=== PATIENT | female | born 1990 | race Two or more races ===

== ENCOUNTER 2023-12-25 23:24 | Emergency (ER) | payer OTHER ==
--- OUTSIDE RECORDS SUMMARY | 2023-12-25 23:27 | XMS REPORT | Continuity of Care Document ---
Author Name Unknown Address [address] [facility] [address] [place] [address] [facility] Address [address] [facility] 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 Name Role Phone No , Giuseppe Primary Care Physician Unavailab Radha Ferguson Attending Clinician Unavailable MICHAEL ROSE Attending Clinician Unavailable MICHAEL ROSE Attending Clinician Unavailable Chasity Jackson MD Attending Clinician DANIEL GARCIA Attending Clinician Unavailable Radha Ornelas Admitting Clinician Unavailable Payers Payer Name Policy Type Policy Number Effective Date Expirati on Date Source [employer] CHOICE POS II [id number] 2022 00:00:00 Allergies, Adverse Reactions, Alerts Allergy Name Allergy Type Status Severity Reaction(s) Onset Date Inactive Date Treating Clinician Comments Source No Known Allergie s DA Active U 2023-03 008 00:00: 00 [facility] Social History Social Habit Start Date Stop Date Quantity Comments Source History of tobacco use Snuff User [facility] Sexual orientation [facility] Cigarettes smoked current (pack per day) - Reported 2023-02-22 00:00:00 2023-02-22 00:00:00 [facility] Cigarette pack-years 2023-02-22 00:00:00 2023-02-22 00:00:00 [facility] Tobacco use and exposure 2023-02-22 00:00:00 2023-02-22 00:00:00 User of smokeless tobacco [facility] History of Social function 2023-02-22 00:00:00 2023-02-22 00:00:00 [facility] Alcoholic beverage intake 2023-02-22 00:00:00 2023-02-22 00:00:00 Lifetime non-drinker (finding) [facility] Alcohol intake 2022-12-08 00:00:00 2022-12-08 00:00:00 Lifetime non-drinker (finding) [facility] Sex assigned at 1990 00:00:00 1990 00:00:00 [facility] Smoking Status Start Date Stop Date Source Smokes tobacco daily 2023-02-22 00:00:00 [facility] Medications Ordered Medication Name Filled Medication Name Start Date Stop Date Current Medication? Ordering Clinician Indication Dosage Frequency Signature (SIG) Comments Components Source cyclobenzap rine (Flexeril) 5 MG tablet 2022-03 00:00: 00 03-05 05:59 :00 No [id number] 5mg Q.[id number] 3D Take 1 tablet (5 mg total) by mouth in the morning and 1 tablet (5 mg total) at noon and 1 tablet (5 mg total) in the evening. Do all this for 10 days. [facility] docusate sodium (Colace) 100 MG capsule 2022-03 2-06 00:00: 00 02-22 00:00 :00 No [id number] 100mg Q.5D Take 1 capsule (100 mg total) by mouth 2 (two) times a day if needed for constipati on for up to 15 days. [facility] levothyroxi ne (Synthroid, Levoxyl) 25 MCG tablet 2022-03 0-14 00:00: 00 Yes 25ug QD Take 25 mcg by mouth 1 (one) time each day. [facility] nystatin-tr iamcinolone (Mycolog II) ointment 12-08 00:00: 00 12-23 04:59 :00 No [id number] Q.5D Apply topically 2 (two) times a day for 14 days. [facility] Immunizations Ordered Immunization Name Filled Immunization Name Date Status Comments Patricia rce HPV 9-Valent Unknown [facility]pleted [facility] 9-[facility] Unknown Completed [facility] HPV 9-Valent Unknown Completed [facility] HPV 9-[facility] Unknown Completed [facility] Vital Signs Vital Name Observation Time Observation Value Comments S ource Systolic blood pressure 2023-02-22 19:47:00 125 mm[Hg] [facility] Diastolic blood pressure 2023-02-22 19:47:00 79 mm[Hg] [facility] Body height 2023-02-22 19:47:00 [facility] weight 2023-02-22 19:47:00 81.647 [facility] BMI 2023-02-22 19:47:00 28[facility]19 [facility] Systolic blood pressure 2023-01-26 16:58:00 110 mm[Hg] [facility] Diastolic blood pressure 2023-01-26 16:58:00 75 mm[Hg] [facility] Heart rate 2023-01-26 16:58:00 65 /min [facility] Body weight 2023-01-26 16:58:00 78.926 [facility] BMI 2023-01-26 16:58:00 28.30 [facility] Systolic blood pressure 2022-12-29 17:08:00 114 mm[Hg] [facility] Diastolic blood pressure 2022-12-29 17:08:00 80 mm[Hg] [facility] Heart rate 2022-12-29 17:08:00 77 /min [facility] Body weight 2022-12-29 17:08:00 78.926 [facility] BMI 2022-12-29 17:08:00 28.30 [facility]m2 [facility] Systolic blood pressure 2022-12-08 16:31:00 111 mm[Hg] [facility] Diastolic blood pressure 2022-12-08 16:31:00 76 mm[Hg] [facility] Heart rate 2022-12-08 16:31:00 75 /min [facility] Body height 2022-12-08 16:31:00 167 cm [facility] Body weight 2022-12-08 16:31:00 78.472 [facility] BMI 2022-12-08 16:31:00 28.14 kg/m2 [facility] Procedures Procedure Date / Time Performed Performing Clinicia n Source POCT , URINE 2023-01-26 18:53:49 Regan Rose [facility] TISSUE PATHOLOGY 2023-01-26 18:53:00 [facility] DC COLPOSC,CERVIX W/ADJ VAG, W/BX & CURRETAG 2023-01-26 16:45:00 [facility] POCT URINALYSIS DIPSTICK 2022-12-08 17:14:18 [facility] Encounters Start Date/Time End Date/Time Encounter Type Admission Type Attending Clinicians Care Facility Care Department Encounter ID Source 2023-12-18 17:22:00 2023-12-18 19:42:00 Emergency EM Radha Ornelas [facility] KAYE [id number] [facility] 2023-07-10 16:15:00 2023-07-10 16:15:00 Outpatient MICHAEL ROSE [facility] [id number] [facility] 2023-02-22 13:30:00 2023-02-22 14:27:46 Office Visit Michael Rose [facility] [address] [facility] [id number] [facility] 2023-02-14 07:02:00 2023-02-14 12:30:00 Outpatient MICHAEL ROSE [facility] [id number] [address] [place] [address] 2023-02-14 08:30:00 2023-02-14 08:30:00 Outpatient MICHAEL ROSE [facility] [id number] [facility] 2023-02-08 14:45:00 2023-02-08 15:02:30 Clinical Support JacksonChasity [facility] [address] [facility] [place] [id number] [facility] 2023-01-29 15:45:00 2023-01-29 15:45:00 Outpatient DANIEL GARCIA [facility] [id number] [facility] 2023-01-26 10:45:00 2023-01-26 11:59:41 Procedure Visit Michael Rose [facility] [address] [facility] [place] [id number] [facility] 2022-12-29 11:45:00 2022-12-29 12:49:48 Office Visit Michael Rose [facility] [address] [facility] [place] [id number] [facility] 2022-12-08 11:00:00 2022-12-08 12:01:57 Office Visit Michael Rose [facility] [address] [facility] [place] [id number] [facility] Results Test Description Test Time Test Comments Results Result Co mments Source [facility] , urine manually [id number] 18:53:49* Test Item Value Reference Range Interpretation Comme nts Preg Test, Ur (test code = 0554979) Negative Negative Lab Interpretation (test cod e = 10136-8) Normal [facility] [id number] 16:45:00Michael Rose MD ? ? 01/31/2023 11:07 AMColposcopy Date/Time: 01/26/2023 10:45 AM Performed by: Michael Rose MDAuthorized by: Michael Rose MD ?Procedure location: cervix and vagina ?Consent: ?Patient questions answered: yes ? ?Risks and benefits of the procedure and its alternatives discussed: yes ? 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 ?Biopsy taken: yes ? ?# of biopsies: ?2 ?Biopsy location(s): 12, 6 o'clock ?Cervix visibility: fully visualized ? ?SCJ visibility:not fully visualized ? ?Lesion visualized: fully visualized ? ?Acetowhite lesion(s): cervix ? ?Ferric subsulfate solution applied: yes ?Post- procedure: ?Patient tolerance of procedure: ?Patient tolerated the procedure well with no immediate complications ?Instructions and paperwork completed: yes ?[facility] urinalysis dipstick manually [id number] 17:14:18* Test Item Value Reference Range Interpretation Comme nts Color, UA (test code = 1076) Yellow Clarity, UA (test code = 4796449) Clear Glucose, UA (test code = 4123772) Negative Negative Bilirubin, UA (test code = 1649651) Negative Negative Ketones, Urine (test code = 30783-1) Negative Negative, Trace Spec Grav, UA (test code = 215407304) 1.030 Blood, UA (test code = 742858493) Negative pH, UA (test code = 0854939) 5.5 5.0-8.5 Protein, UA (test code = 5834146) Negative Negative, Trace, 200(+2)mg/dL, 15/mg/dL UROBILINOGEN, POC (test code = 40264803) 0.2 Nitrite, UA (test code = 6492263) Negative Negative, Trace Leukocytes, UA (test code = 4055070) Negative Negative, Trace Lab Interpretation (test cod e = 31140-4) Normal [facility] Notes Date/Time Note Provider Source 2023-12-18 17:46:00 [facility] KAYE Evaluation Note REPORT#:[id number] REPORT STATUS: Signed REPORT INITIALIZATION DATE:12/18/23 TIME: 1745 PATIENT: SOILA GONZALEZ UNIT #: [id number] ROOM/BED: : 90 AGE: 33 SEX: F ATTEND: Radha Ornelas MD ADM DT: AUTHOR: Lisa Marks MD REPT SERVICE DT/TIME: 12/18/231745 * ALL edits or amendments must be made on the electronic/computer document * KAYE History Chief complaint: decreased movement, discharge HPI: 33 year old G1 at 38.2 weeks here for decreased movement. Limited movement throughout the day. Had abdominal pain with tightening for 3 hours yesterday however nothing today. History of BV and notes malodorous white discharge. No vb , lof, ctx. +FM care with Dr. Ornelas. complicated by hypothyrodism. history: : 1 Current : EDC: 12/30/23 Notes: Hx of HPV Past medical history: thyroid (hypo) Past surgical history: appendectomy, hysteroscopic polypectomy Social history: no tobacco use, no drug use, former smoker Medications: Home Medications: Medication Dose/Rte/Freq Days Qty Entered Last Max Daily Dose Reviewed LEVOTHYROXINE 75 MCG PO DAILY 12/18/23 12/18/23 (SYNTHROID) 5188 1828 Strength: 75 MCG TAB Allergies Coded Allergies: No Known Allergies (12/18/23) Review of Systems All systems rev neg: except as marked Objective General VS: Last Documented: Result Date Time B/P Mean 92.0 12/17 1745 B/P 126/71 12/17 1745 Pulse 77 12/17 1745 Pulse Ox 99 12/17 1728 Vital Signs Date Temp Pulse Resp B/P B/P Mean Pulse Ox FiO2 12/17 77-78 126-139/71-85 92.0-105.0 99 PATIENT WEIGHT: Weight (lb): Weight (oz): Weight (kg): Physical Exam HEENT: normocephalic w/o injury, no scleral icterus Lungs: unlabored breathing Neuro: Exam: alert, oriented x3, CNII-XII grossly intact Abdomen: gravid, soft, no abnormal tenderness Musculoskeletal: normal inspection Uterine activity: Monitor: toco Frequency (description): irritability Cervical/ exam: Dilatation (cm): 1 Effacement (%): 50 station: - 3 FHR evaluation: Baseline: 150 bpm Variability: moderate 6-25 bpm Accelerations: 15 X 15 Decelerations: none Notes: Reactive Lower extremities: Edema: none Results Findings/Data: Microbiology: Date/Time Procedure - Status Source Growth 12/18 1751 Wet Prep - COMP VAGINAL Recent Impressions: ULTRASOUND - US FET BIO PH DC W/O NST 12/17 1816 Report Impression - Status: SIGNED Entered: 12/18/2023 4381 IMPRESSION: Single live IUP as noted above. Impression By: [email or web address] - Catalino Deshpande MD Diagnosis, Assessment Plan Diagnosis, Assessment Plan Free Text A P: 33 yo G1 at 38.2 weeks with resolved decreased movement and bacterial vaginosis Plan: - Reactive NST; BPP 10/17. Patient able to feel and see movement - Wet mount with clue cells. Will send Clindamycin vaginal gel - Labor precautions - f/u with OB at 1901 RPT #:[id number] END OF REPORT [facility]
--- NOTE | 2023-12-25 23:56 | EDPHYS ---
Physician Documentation [facility] Name: Jacobo Pisano Age: 33 yrs Sex: Female : 1990 Arrival Date: 12/25/2023 Time: 23:24 Bed 5 Private MD: ED Physician Minesh Garsia HPI: 12/24 23:37 This 33 yrs old [place] Female presents to ER via Unassigned with complaints of sp4 POSSIBLE MED REACTION, Ear Pain, Jaw Pain, EST 30 WKS GESTATION. 12/25 04:10 33-year-old female presents with acute onset left ear pain not improving with Ciprodex, sp4 patient is , patient reports EGA 38 weeks and 4 days patient is G1, P0 . 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 - Infectious Disease History:: Denies. - Social history:: Smoking status: Patient denies any tobacco usage or history of. - Family history:: not pertinent. ROS: 04:10 Constitutional: Negative for fever, chills, and weight loss, positive left ear pain , sp4 positive left facial pain 04:10 All other systems are negative, Exam: 04:10 Constitutional: This is a well developed, well nourished patient who is awake, alert, sp4 and in no acute distress. Head/Face: Normocephalic, atraumatic. Eyes: Pupils equal round and reactive to light, extra-ocular motions intact. Lids and lashes normal. Conjunctiva and sclera are not injected. Cornea within normal limits. Periorbital areas with no swelling, redness, or edema. ENT: . Oropharynx with no redness, swelling, or masses, exudates, or evidence of obstruction, uvula midline. Mucous membranes moist. Right ear exam is normal, left ear exam reveals swelling erythema and purulent discharge in the left ear canal. Left auricular pain with movement. Exam consistent with left otitis externa Neck: Trachea midline, no thyromegaly or masses palpated, and no cervical lymphadenopathy. Supple, full range of motion without nuchal rigidity, or vertebral point tenderness. Chest/axilla: Normal chest wall appearance and motion. Nontender with no deformity. No lesions are appreciated. Cardiovascular: Regular rate and rhythm with a normal S1 and S2. No gallops, murmurs, or rubs. Normal PMI, no JVD. No pulse deficits. Respiratory: Lungs have equal breath sounds bilaterally, clear to auscultation and percussion. No rales, rhonchi or wheezes noted. No increased work of breathing, no retractions or nasal flaring. Abdomen/GI: Soft, with normal bowel sounds. No distension or tympany. No guarding or rebound. No evidence of tenderness throughout. Back: No spinal tenderness. No costovertebral tenderness. Skin: Warm, dry with normal turgor. Normal color with no rashes, no lesions, and no evidence of cellulitis. MS/ Extremity: Pulses equal, no cyanosis. Neurovascular intact. Full, normal range of motion. Neuro: Awake and alert, GCS 15, oriented to person, place, time, and situation. Cranial nerves II-XII grossly intact. Motor strength 5/5 in all extremities. Sensory grossly intact. Psych: Awake, alert, with orientation to person, place and time. Behavior, mood, and affect are within normal limits Vital Signs: 00:36 BP 134 / 92; Pulse 80; Resp 18; Temp 98.5; Pulse Ox 98% ; Weight 96.62 kg; Height 5 ft. al5 5 in. ; Pain 10/10; 00:36 Body Mass Index 35.44 (96.62 kg, 165.1 cm) al5 00:36 Pain Scale: Adult al5 [place] Coma Score: 04:10 Eye Response: spontaneous(4). Motor Response: obeys commands(6). Verbal Response: sp4 oriented(5). Total: 15. MDM: 12/24 23:49 Medical Screening Exam initiated sp4 12/25 04:12 Differential diagnosis: otitis media, otitis externa, ruptured TM, foreign body. Data sp4 reviewed: vital signs, nurses notes. ED course: Patient was advised to finish Ciprodex, will be prescribed cephalexin for the next 10 days.. Administered Medications: 00:37 Drug: diphenhydrAMINE PO 50 mg PO once Route: PO; al5 01:05 Follow up: Response: No adverse reaction al5 00:37 Drug: MetoCLOPramide PO 10 mg PO once Route: PO; al5 01:04 Follow up: Response: No adverse reaction; Nausea is decreased al5 00:37 Drug: Rocephin (cefTRIAXone) IM 1 grams IM once Route: IM; Site: right gluteus; al5 01:04 Follow up: Response: No adverse reaction al5 00:37 Drug: Cephalexin PO 500 mg PO once Route: PO; al5 01:04 Follow up: Response: No adverse reaction al5 Disposition Summary: 12/25/23 23:55 Discharge Ordered Problem: new sp4 Symptoms: have improved sp4 Condition: Stable sp4 Diagnosis - Diffuse otitis externa, left ear sp4 Followup: sp4 - With: Melany Hirsch MD - When: 7 - 10 days - Reason: Recheck today's complaints Discharge Instructions: - Discharge Summary Sheet sp4 - Otitis Externa, Emhm-zh-[id number] sp4 Forms: - Patient Portal Instructions sp4 Prescriptions: - Cephalexin 500 mg Oral Capsule - take 1 capsule ORAL route every 8 hours for 10 days; 30 capsule; Refills: 0, sp4 Product Selection Permitted Signatures: Minesh Garsia MD MD sp4 aPri Betancur RN RN al5
[2023-12-26] MEDS ORDERED: DIPHENHYDRAMINE 25 MG TAB/CAP ONE (00:18)
[2023-12-26] MEDS ORDERED: CEFTRIAXONE 1000 MG/VIAL ONE (00:18)
[2023-12-26] MEDS ORDERED: CEPHALEXIN 250 MG CAP ONE (00:18)
[2023-12-26] MEDS ORDERED: LIDOCAINE 1% MPF 5 ML VIAL ONE (00:18)
[2023-12-26] MEDS ORDERED: METOCLOPRAMIDE 5 MG TAB ONE (00:19)
--- NOTE | 2023-12-26 04:08 | ER ---
Nurse's Notes [facility] Name: Jacobo Pisano Age: 33 yrs Sex: Female : 1990 Arrival Date: 12/25/2023 Time: 23:24 Bed 5 Private MD: Diagnosis: Diffuse otitis externa, left ear Presentation: 12/25 00:36 Chief complaint: Patient states: c/o L ear pain, has had ear infection x6 days and was al5 prescribed ciprofloxacin/dexamethasone ear drops with no relief. Coronavirus screen: At this time, the client does not indicate any symptoms associated with coronavirus-19. Ebola Screen: No symptoms or risks identified at this time. Initial Sepsis Screen: Does the patient meet any 2 criteria? No. Patient's initial sepsis screen is negative. Does the patient have a suspected source of infection? No. Patient's initial sepsis screen is negative. Risk Assessment: Do you want to hurt yourself or someone else? Patient reports no desire to harm self or others. Onset of symptoms was December 26, 2023. 00:36 Method Of Arrival: Ambulatory al5 00:36 Acuity: MINI 4 al5 Triage Assessment: 00:37 General: Appears in no apparent distress. Behavior is calm, cooperative. General: al5 patient 30 weeks . Pain: Complains of pain in left ear Pain currently is 10 out of 10 on a pain scale. EENT: Reports pain in left ear. Neuro: Level of Consciousness is awake, alert, obeys commands, Oriented to person, place, time, situation. Cardiovascular: Capillary refill < 3 seconds Patient's skin is warm and dry. Respiratory: Airway is patent Respiratory effort is even, unlabored, Respiratory pattern is regular, symmetrical. GI: No signs and/or symptoms were reported involving the gastrointestinal system. : No signs and/or symptoms were reported regarding the genitourinary system. Derm: Skin is intact, Skin is pink, warm \T\ dry. normal. Musculoskeletal: No signs and/or symptoms reported regarding the musculoskeletal system. 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 - Infectious Disease History:: Denies. - Social history:: Smoking status: Patient denies any tobacco usage or history of. - Family history:: not pertinent. Screenin:39 [facility] ED Fall Risk Assessment (Adult) History of falling in the last 3 months, al5 including since admission No falls in past 3 months (0 pts) Confusion or Disorientation No (0 pts) Intoxicated or Sedated No (0 pts) Impaired Gait No (0 pts) Mobility Assist Device Used No (0 pt) Altered Elimination No (0 pt) Score/Fall Risk Level 0 - 2 = Low Risk Oriented to surroundings, Maintained a safe environment, Hourly rounding (assess needs \T\ fall precautionary measures) done. Abuse screen: Denies threats or abuse. Denies injuries from another. Nutritional screening: No deficits noted. Tuberculosis screening: No symptoms or risk factors identified. Assessment: 00:39 Reassessment: see triage assessment. al5 00:40 Reassessment: discharge pending shot time. al5 Vital Signs: 00:36 BP 134 / 92; Pulse 80; Resp 18; Temp 98.5; Pulse Ox 98% ; Weight 96.62 kg; Height 5 ft. al5 5 in. ; Pain 10/10; 00:36 Body Mass Index 35.44 (96.62 kg, 165.1 cm) al5 00:36 Pain Scale: Adult al5 [place] Coma Score: 04:10 Eye Response: spontaneous(4). Motor Response: obeys commands(6). Verbal Response: sp4 oriented(5). Total: 15. ED Course: 12/24 23:25 Patient arrived in ED. [email or web address] 23:37 Minesh Garsia MD is Attending Physician. sp4 23:54 Melany Hirsch MD is Referral Physician. sp4 12/25 00:14 Pari Betancur RN is Primary Nurse. al5 00:37 Triage completed. al5 00:38 Arm band placed on right wrist. Patient placed in the treatment room, on a stretcher. al5 00:39 Patient has correct armband on for positive identification. Bed in low position. Call al5 light in reach. Side rails up X 1. Provided Education on: medication safety. 00:39 No provider procedures requiring assistance completed. Patient did not have IV access al5 during this emergency room visit. Administered Medications: 00:37 Drug: diphenhydrAMINE PO 50 mg PO once Route: PO; al5 01:05 Follow up: Response: No adverse reaction al5 00:37 Drug: MetoCLOPramide PO 10 mg PO once Route: PO; al5 01:04 Follow up: Response: No adverse reaction; Nausea is decreased al5 00:37 Drug: Rocephin (cefTRIAXone) IM 1 grams IM once Route: IM; Site: right gluteus; al5 01:04 Follow up: Response: No adverse reaction al5 00:37 Drug: Cephalexin PO 500 mg PO once Route: PO; al5 01:04 Follow up: Response: No adverse reaction al5 Medication: 00:39 VIS not applicable for this client. al5 Outcome: 12/24 23:55 Discharge ordered by . am[place] 12/25 01:05 Discharged to home ambulatory, with significant other, al5 Condition: good Discharge instructions given to patient, Instructed on discharge instructions, follow up and referral plans. medication usage, Demonstrated understanding of instructions, follow-up care, medications, Prescriptions given X 1, 01:05 Patient left the ED. al5 Signatures: Zunilda Sylvester [email or web address] Minesh Garsia MD MD sp4 Pari Betancur RN RN al5
[2023-12-26 07:52] VITALS: BP 134/92; TEMP 98.5; O2SAT 98
== END 2023-12-26 01:05 | disposition home or self-care (01) ==
LOC: ER 23:24
DX: O99.891 Other specified diseases and conditions complicating pregnancy (principal); H60.312 Diffuse otitis externa, left ear; Z3A.30 30 weeks gestation of pregnancy
CPT/HCPCS: J2001; J0696; 96372; 99284